=== PATIENT | female | born 1970 ===

== ENCOUNTER 2022-10-29 15:45 | Emergency (ER) | payer MEDICAID, SELFPAY ==
--- NOTE | ~2022-10-29 | XR_ITS ---
EXAMINATION: XR CHEST CLINICAL INFORMATION: Chest pain COMPARISON: None available. TECHNIQUE: 2 views of the chest were obtained. FINDINGS: No significant abnormality is noted involving the heart, lungs, mediastinum, bony thorax or soft tissues. XR/XR chest 2V IMPRESSION: Unremarkable chest examination.
--- NOTE | ~2022-10-29 | CT_ITS ---
EXAMINATION: CT ABDOMEN AND PELVIS WITH CONTRAST CLINICAL INFORMATION: Hematuria. No UTI or flank pain. COMPARISON: None available. TECHNIQUE: Multidetector volumetric images were obtained from the superior aspect of the liver through the pubic symphysis following administration 85 mL of Omnipaque 350 intravenous contrast. Sagittal and coronal reformatted images were obtained on the technologist's workstation. Oral contrast: No This CT examination was performed using dose optimization techniques as appropriate, variously including the following: *Automated exposure control *Adjustment of mA and/or kV according to patient size (this includes techniques or standardized protocols for targeted exams where dose is matched to indication/reason for exam; i.e. extremities or head) *Use of iterative reconstruction technique DLP: 504 mGy-cm FINDINGS: LUNG BASES: The visualized lung bases are clear. Coronary artery calcifications present. LIVER, GALLBLADDER, AND BILIARY TREE: The liver is normal in size, shape, and attenuation. No focal hepatic lesion or biliary ductal dilatation is present. The gallbladder is unremarkable with no evidence of radiopaque gallstones, gallbladder wall thickening, or obvious pericholecystic inflammatory changes. PANCREAS: Unremarkable. SPLEEN: Unremarkable. ADRENAL GLANDS: Unremarkable. KIDNEYS AND URETERS: The kidneys are normal in size, shape, and attenuation. No hydronephrosis or hydroureter. 0.2 cm right midpole renal calculus is 8.5 cm from the posterior axillary line. There is also a tiny right upper pole calculus. BLADDER: Unremarkable. GASTROINTESTINAL TRACT: The stomach is unremarkable. Normal caliber of the small bowel. There is no obstruction. There is small bowel fecalization, particularly in the left lower quadrant, suggesting slow transit. The appendix is not seen. No inflammation in the region of the cecum to suggest acute appendicitis. No colonic wall thickening or acute inflammation. Redundant appearance of the sigmoid colon. ABDOMINAL WALL: No significant hernia is appreciated. LYMPH NODES: Normal. VASCULAR: Normal caliber of the aorta with mild atherosclerotic vascular calcification. PELVIC VISCERA: Anteverted uterus with multiple nabothian cysts noted. A few small calcifications are seen which could be associated with fibroids. No adnexal mass. Dominant left adnexal follicle measures 2.3 cm. OSSEOUS STRUCTURES: No acute or suspicious osseous abnormality. Mild degenerative changes in the hips and spine. CT/CT abdomen pelvis w IV con IMPRESSION: No acute findings in the abdomen or pelvis. No hydronephrosis. Tiny nonobstructing right renal calculi. Fleischner guidelines were followed.
[2022-10-29 15:49] VITALS: BP 186/87; PULSE 91; RESP 16; TEMP 36.7; O2SAT 99; BMI 27.8
--- NOTE | 2022-10-29 15:49 | ED_ITS ---
HPI - Female Genitourinary General Chief complaint: Chest Pain Stated complaint: blood in urine Time Seen by Provider: 10/29/22 17:02 Source: patient Mode of arrival: ambulatory Limitations: no limitations History of Present Illness HPI Narrative: Patient comes emergency room complaining of chest pain for 13+ hours. Patient states it is mild, no shortness of breath, nonradiating. However, patient's main concern today is that she has been having blood in the urine. Patient denies being vaginal bleeding. Patient states that she only sees the blood when she urinates. Patient denies dysuria. No flank pain, no fever or chills. Related Data Allergies Allergy/AdvReac Type Severity Reaction Status Date / Time No Known Allergies Allergy Verified 10/29/22 15:48 Review of Systems Review of Systems: Constitutional : No Weight loss, No Fever, No Chills, No Night Sweats, No Fatigue, No Malaise ENT/Mouth : No Hearing loss, No Ear Pain, No Nasal Congestion, No Sinus Pain, No Hoarseness, No sore throat, No Rhinorrhea, No Swallowing Difficulty Eyes: No Eye Pain, No Swelling, No Redness, No Foreign Body, No Discharge, No Vision Changes Cardiovascular : Complaining of mild constant nonradiating midsternal Chest Pain for 13+ hours, No SOB, No Dyspnea on Exertion, No Orthopnea, No Edema, No Palpitations Respiratory : No Cough, No Sputum, No Wheezing, No Smoke Exposure, No Dyspnea Gastrointestinal : No Nausea, No Vomiting, No Diarrhea, No Constipation, No abdominal Pain, No Hematochezia, No Melena Genitourinary :no Dysuria, No Urinary Frequency, complaining of Hematuria, No Urinary Incontinence, No Urgency, No Flank Pain, No Urinary Flow Changes, No Hesitancy Musculoskeletal : No joint pain, No Myalgias, No Joint Swelling Skin : No Skin Lesions, No rash Neuro : No Weakness, No Numbness, No Paresthesias, No Loss of Consciousness, No Dizziness, No Headache Psych : No Anxiety/Panic, No Depression, No SI/HI/AH/VH, No Social Issues, Heme/Lymph: No Bruising, No Bleeding,No Lymphadenopathy Endocrine : No Polyuria, No Polydipsia, No Temperature Intolerance [facility] Past Medical History Medical History (Updated 10/30/22 @ 00:47 by Dolores Ferguson MD) Coronary artery disease Social History Social History Alcohol intake: never Smoked in Last 30 Days: No Use of substances other than those prescribed or required for medical reasons: No Advance Directives: No Advance Directives Information Provided: No Patient : No Physical Exam Vital Signs: Vital Signs: Last Vital Signs Temp 98.4 F 10/29/22 21:12 Pulse 93 10/29/22 21:12 Resp 17 10/29/22 21:12 BP 146/80 H 10/29/22 21:12 Pulse Ox 100 10/29/22 21:12 O2 Del Method Room Air 10/29/22 21:12 BMI result Body Mass Index 27.8 Const: Other: Appearance: Alert. Oriented X3. No acute distress. Eyes: Pupils equal, round and reactive to light. ENT: Pharynx normal. Neck: Normal inspection. Neck supple. No lymph nodes noted. No crepitus CVS: Normal heart rate and rhythm. Pulses normal. Normal S1 and S2, +2 systolic murmur right sternal border Respiratory: No respiratory distress. Breath sounds normal. No Wheezing. No rales Abdomen: Soft and nontender. No rigidity. No distention. : Patient has scant amount of brown blood, no active bleeding. Skin: Skin warm and dry. Normal skin color. Normal skin turgor. Extremities: No lower extremity edema. No Lacerations. No Rash Neuro: Oriented X 3. No motor deficit. No sensory deficit. Moving all extremities. No slurred speech. CN 2 through 12 grossly intact Psych: calm, cooperative, normal affect Course Course Course Narrative: This is an RME: Additional HPI, ROS, PE not included below will be deferred to primary provider. Patient is a 52-year-old male who presents emergency department for evaluation of constant mid chest pain described as a pressure, non radiating since this 04:00 this morning with associated dizziness and nausea. Also reporting hematuria with clots Plan: Labs, EKG, hCG, urinalysis Medications Administered Discontinued Medications Generic Name Dose Route Start Last Admin Trade Name Freq PRN Reason Stop Dose Admin Iohexol 100 ml 10/29/22 20:01 10/29/22 20:01 Iohexol 350 Mg/Ml 100 Ml Infus..Btl IV 10/29/22 20:02 85 ml ONCE ONE Administration Medical Decision Making Medical Decision Making [facility] Narrative: -patient came in complaining of chest pain, patient has history of CABG. Initially, admission was considered. -my interpretation of EKG: Normal sinus rhythm, heart rate 85, no ST segment depression or elevation, no T-wave inversion, QTC 449 -patient's white blood cell count is normal, BUN and creatinine relatively unremarkable -my interpretation of urinalysis, there is blood in the urine. Does not seem to have a UTI. Unclear why patient has blood in the urine. We will order a CT scan of the abdomen pelvis to rule out malignancy, cystitis. -CT scan does not show any abnormality -on physical exam, patient has vaginal bleeding, brown spotting. Patient states that this is the 1st time that she misses her period. I discussed with the patient that this is likely the beginning of menopause and was not having irregular menstruation. Differential Diagnosis Differential Diagnoses: The differential diagnosis associated with the presentation includes (Costochondritis, pleurisy, musculoskeletal pain, ACS. UTI, cystitis, vaginal bleeding) Admission/Observation Consideration of admission/observation: Escalation of care including admission/observation considered Lab Data MDM Lab Attestation statement: I reviewed the patient's lab results. 10/29/22 16:06 10/29/22 16:06 Labs: Lab Results 10/29/22 10/29/22 10/29/22 Range/Units 16:06 16:06 16:06 WBC 8.4 (4.8-10.8) X10*3/uL RBC 4.78 (4.20-5.50) X10*6/uL Hgb 12.4 (12.0-16.0) g/dl Hct 39.0 (37.0-47.0) % MCV 81.6 (80.0-98.0) fL MCH 25.9 L (27.0-33.0) pg MCHC 31.8 (31.0-35.0) g/dl RDW 12.3 (11.0-16.0) % Plt Count 271 (160-400) X10*3/uL MPV 11.7 (9.4-12.3) fL Immature Gran % (Auto) 0.4 (0.0-0.4) % Neut % (Auto) 57.3 (45-73) % Lymph % (Auto) 35.0 (20-40) % Barbour % (Auto) 5.8 (2-11) % Eos % (Auto) 1.1 (0-4) % Baso % (Auto) 0.4 (0-2) % Lymph # (Auto) 2.9 (1.2-4.9) X10*3/uL Barbour # (Auto) 0.5 (0.1-1.2) X10*3/uL Eos # (Auto) 0.1 (0.0-0.4) X10*3/uL Baso # (Auto) 0.0 (0.0-0.2) X10*3/uL Abs Immat Gran (auto) 0.03 (0.00-0.03) X10*3/uL Absolute Neuts (auto) 4.8 (2.0-8.3) x10*3/uL Absolute Nucleated RBC 0.000 (0.0-0.012) X10*3/uL Nucleated RBC % (auto) 0.0 (0.0-0.2) /100WBC Sodium 140 (135-145) mmol/L Potassium 3.8 (3.3-5.1) mmol/L Chloride 104 (96-108) mmol/L Carbon Dioxide 28 (22-29) mmol/L Anion Gap 12 (12-20) BUN 18 H (9-16) mg/dL Creatinine 0.83 (0.5-1.4) mg/dL Estim Creat Clear Calc 81.6 Estimated GFR > 60 Random Glucose 104 (60-115) mg/dL Calcium 9.2 (8.4-10.2) mg/dL Magnesium 2.1 (1.6-2.6) mg/dL Total Bilirubin 0.3 (0.0-1.0) mg/dL AST 30 (5-31) U/L ALT 27 (0-31) U/L Alkaline Phosphatase 115 (39-117) U/L Troponin I High Sens < 2.7 (<3.5-17.0) ng/L Total Protein 7.9 (6.5-8.0) g/dL Albumin 3.8 (3.5-5.0) g/dL Lipase 48 (8-78) U/L Urine Color Urine Appearance Urine pH (5.0-9.0) Ur Specific Mcdavid (1.005-1.025) Urine Protein (Neg-Trace) mg/dL Urine Glucose (UA) (Negative) mg/dL Urine Ketones (Negative) mg/dL Urine Blood (Negative) Urine Nitrite (Negative) Ur Leukocyte Esterase (Negative) Urine RBC (0-2) /HPF Urine WBC (0-5) /HPF Ur Squamous Epith Cells (0-2) /HPF Urine Bacteria (None Seen) Hyaline Casts (0-2) /LPF Urine Test (NEGATIVE) 10/29/22 10/29/22 Range/Units 17:28 17:28 WBC (4.8-10.8) X10*3/uL RBC (4.20-5.50) X10*6/uL Hgb (12.0-16.0) g/dl Hct (37.0-47.0) % MCV (80.0-98.0) fL MCH (27.0-33.0) pg MCHC (31.0-35.0) g/dl RDW (11.0-16.0) % Plt Count (160-400) X10*3/uL MPV (9.4-12.3) fL Immature Gran % (Auto) (0.0-0.4) % Neut % (Auto) (45-73) % Lymph % (Auto) (20-40) % Barbour % (Auto) (2-11) % Eos % (Auto) (0-4) % Baso % (Auto) (0-2) % Lymph # (Auto) (1.2-4.9) X10*3/uL Barbour # (Auto) (0.1-1.2) X10*3/uL Eos # (Auto) (0.0-0.4) X10*3/uL Baso # (Auto) (0.0-0.2) X10*3/uL Abs Immat Gran (auto) (0.00-0.03) X10*3/uL Absolute Neuts (auto) (2.0-8.3) x10*3/uL Absolute Nucleated RBC (0.0-0.012) X10*3/uL Nucleated RBC % (auto) (0.0-0.2) /100WBC Sodium (135-145) mmol/L Potassium (3.3-5.1) mmol/L Chloride (96-108) mmol/L Carbon Dioxide (22-29) mmol/L Anion Gap (12-20) BUN (9-16) mg/dL Creatinine (0.5-1.4) mg/dL Estim Creat Clear Calc Estimated GFR Random Glucose (60-115) mg/dL Calcium (8.4-10.2) mg/dL Magnesium (1.6-2.6) mg/dL Total Bilirubin (0.0-1.0) mg/dL AST (5-31) U/L ALT (0-31) U/L Alkaline Phosphatase (39-117) U/L Troponin I High Sens (<3.5-17.0) ng/L Total Protein (6.5-8.0) g/dL Albumin (3.5-5.0) g/dL Lipase (8-78) U/L Urine Color Yellow Urine Appearance Clear Urine pH 6.0 (5.0-9.0) Ur Specific Mcdavid >= 1.030 H (1.005-1.025) Urine Protein 100 (2+) H (Neg-Trace) mg/dL Urine Glucose (UA) >=1000 H (Negative) mg/dL Urine Ketones Negative (Negative) mg/dL Urine Blood Small (1+) H (Negative) Urine Nitrite Negative (Negative) Ur Leukocyte Esterase Negative (Negative) Urine RBC 3-5 H (0-2) /HPF Urine WBC 0-5 (0-5) /HPF Ur Squamous Epith Cells 3-5 (0-2) /HPF Urine Bacteria 4+ (None Seen) Hyaline Casts 0-2 (0-2) /LPF Urine Test NEGATIVE (NEGATIVE) Independent Interpretation I performed an independent interpretation of an: CT Scan (My interpretation of CT scan: No obvious abnormalities of the brother or system) Radiology Impression Discussion of test interpretation with radiology: I have reviewed the radiologist's reading. Radiologist Impression: FINDINGS: LUNG BASES: The visualized lung bases are clear. Coronary artery calcifications present.? LIVER, GALLBLADDER, AND BILIARY TREE: The liver is normal in size, shape, and attenuation. No focal hepatic lesion or biliary ductal dilatation is present. The gallbladder is unremarkable with no evidence of radiopaque gallstones, gallbladder wall thickening, or obvious pericholecystic inflammatory changes.? PANCREAS: Unremarkable.? SPLEEN: Unremarkable.? ADRENAL GLANDS: Unremarkable.? KIDNEYS AND URETERS: The kidneys are normal in size, shape, and attenuation. No hydronephrosis or hydroureter. 0.2 cm right midpole renal calculus is 8.5 cm from the posterior axillary line. There is also a tiny right upper pole calculus. BLADDER: Unremarkable.? GASTROINTESTINAL TRACT: The stomach is unremarkable. Normal caliber of the small bowel. There is no obstruction. There is small bowel fecalization, particularly in the left lower quadrant, suggesting slow transit. The appendix is not seen. No inflammation in the region of the cecum to suggest acute appendicitis. No colonic wall thickening or acute inflammation. Redundant appearance of the sigmoid colon.? ABDOMINAL WALL: No significant hernia is appreciated.? LYMPH NODES: Normal. VASCULAR: Normal caliber of the aorta with mild atherosclerotic vascular calcification. PELVIC VISCERA: Anteverted uterus with multiple nabothian cysts noted. A few small calcifications are seen which could be associated with fibroids. No adnexal mass. Dominant left adnexal follicle measures 2.3 cm.? OSSEOUS STRUCTURES: No acute or suspicious osseous abnormality. Mild degenerative changes in the hips and spine.? CT/CT abdomen pelvis w IV con IMPRESSION: No acute findings in the abdomen or pelvis. No hydronephrosis. Tiny nonobstructing right renal calculi. ? Fleischner guidelines were followed. Critical Care Time Critical Care Time Critical Care Time: Yes Total Critical Care Time: 45 Attestation: I have personally provided critical care time. Time includes review of lab data, radiology results, discussion with consultants, and monitoring for potential decompensation. Intervention performed as documented. Discharge Plan Discharge Clinical Impression: Menopause Patient Disposition: Home, Self-Care Instructions: Dysfunctional Uterine Bleeding (ED) Additional Instructions: Please follow-up with your primary care physician tomorrow. If you have any worsening or new symptoms, please return to the emergency room or call 911 Referrals: Timothy Gonzalez MD [Physician] - 11/01/22 ([facility])
--- NOTE | 2022-10-29 15:54 | ECG_ITS ---
Test Reason : CHEST PAIN Blood Pressure : / mmHG Vent. Rate : 085 BPM Atrial Rate : 085 BPM P-R Int : 152 ms QRS Dur : 076 ms QT Int : 378 ms P-R-T Axes : 048 012 034 degrees QTc Int : 449 ms Normal sinus rhythm Normal ECG No previous ECGs available Referred By: Yanira Blackwood Electronically Signed By:RASHEEDA SMITH MD
[2022-10-29 16:11] LABS: MANUAL DIFF FLAG NO
[2022-10-29 16:12] LABS: Basophils Percent Auto 0.4 % (0-2); Eosinophils Absolute Auto 0.1 X10*3/uL (0.0-0.4); Eosinophils Percent Auto 1.1 % (0-4); Hemoglobin 12.4 g/dl (12.0-16.0); Imm Gran Abs Auto 0.03 X10*3/uL (0.00-0.03); Imm Gran Pct Auto 0.4 % (0.0-0.4); Lymphocytes Absolute Auto 2.9 X10*3/uL (1.2-4.9); Mean Corpuscular HGB Conc 31.8 g/dl (31.0-35.0); Mean Corpuscular Hemoglobin 25.9 pg (27.0-33.0); Mean Corpuscular Volume 81.6 fL (80.0-98.0); Mean Platelet Volume 11.7 fL (9.4-12.3); Monocytes Absolute Auto 0.5 X10*3/uL (0.1-1.2); Monocytes Percent Auto 5.8 % (2-11); Neutrophils Absolute Auto 4.8 x10*3/uL (2.0-8.3); Neutrophils Percent Auto 57.3 % (45-73); Platelet Count 271 X10*3/uL (160-400); Red Blood Count 4.78 X10*6/uL (4.20-5.50); Red Cell Distribution Width 12.3 % (11.0-16.0); White Blood Count 8.4 X10*3/uL (4.8-10.8)
[2022-10-29 16:27] LABS: Alanine Aminotransferase 27 U/L (0-31); Albumin Level 3.8 g/dL (3.5-5.0); Alkaline Phosphatase 115 U/L (39-117); Anion Gap 12 (12-20); Aspartate Amino Transferase 30 U/L (5-31); Bilirubin Total 0.3 mg/dL (0.0-1.0); Blood Urea Nitrogen 18 mg/dL (9-16); Calcium 9.2 mg/dL (8.4-10.2); Carbon Dioxide 28 mmol/L (22-29); Chloride 104 mmol/L (96-108); Creatinine Clr Calc Pharmacy 81.6; Estimated Glomerular Filt Rate > 60; Glucose Random 104 mg/dL (60-115); Lipase 48 U/L (8-78); Magnesium 2.1 mg/dL (1.6-2.6); Potassium 3.8 mmol/L (3.3-5.1); Sodium 140 mmol/L (135-145); Total Protein 7.9 g/dL (6.5-8.0)
[2022-10-29 16:38] LABS: Troponin-I High Sensitivity < 2.7 ng/L (<3.5-17.0)
[2022-10-29 17:36] LABS: Appearance Urine Clear; Color Urine Yellow; Glucose Urine UA >=1000 mg/dL (Negative); Leukocyte Esterase Urine Negative (Negative); Nitrite Urine Negative (Negative); Specific Gravity - Urine >= 1.030 (1.005-1.025); UMIC TRIGGER UACC YES; Urine Blood Small (1+) (Negative); Urine Ketones Negative (Negative); Urine Protein 100 (2+) mg/dL (Neg-Trace)
[2022-10-29 17:39] LABS: UPreg QC Valid YES; Urine Pregnancy NEGATIVE (NEGATIVE)
[2022-10-29 17:49] LABS: Bacteria Urine 4+ (None Seen); Hyaline Casts Urine 0-2 /LPF (0-2); WBC Urine 0-5 /HPF (0-5)
[2022-10-29 17:51] LABS: UACC Culture Trigger YES
--- NOTE | 2022-10-29 19:17 | PC.NURSE ---
Assumed care of pt. Pt lying on stretcher, watching television, no apparent distress at this time. Pt denies CP at this time, given concerns overlabs, planning for CT, pt aware of POC. IV established, pending CT scan and dispo.
[2022-10-29] MEDS: iohexoL 350 MG/ML 100 ML INFUS..BTL IV (20:01)
[2022-10-29 21:12] VITALS: BP 146/80; PULSE 93; RESP 17; TEMP 36.9; O2SAT 100
--- NOTE | 2022-10-29 21:37 | PC.NURSE ---
pt remains lyingon stretcher, no acute distress at this time. Pending CT read and dispo.
== END 2022-10-30 01:17 | disposition home or self-care (01) ==
PROVIDERS: Nurse Practitioner Family; Emergency Provider Emergency Medicine
DX: N92.4 Excessive bleeding in the premenopausal period (principal); R07.9 Chest pain, unspecified
CPT/HCPCS: 36415; 71046; 74177; 80053; 81001; 81025; 83690; 83735; 84484; 85025; 87086; 87088; 87186; 93005; 99284; 99285; Q9967

== ENCOUNTER → 2022-10-29 15:54 | Outpatient (BNV) | payer MEDICAID, SELFPAY | PROVIDERS: Emergency Provider Emergency Medicine; Visit Provider Internal Medicine Cardiovascular Disease | DX: R07.9 Chest pain, unspecified (principal) | CPT/HCPCS: 93010 ==

== ENCOUNTER 2023-07-18 08:39 | Inpatient (IN) | payer MEDICAID, SELFPAY ==
--- NOTE | ~2023-07-18 | CT_ITS ---
EXAMINATION: CT ABDOMEN AND PELVIS WITH CONTRAST CLINICAL INFORMATION: Epigastric and left lower quadrant pain with tenderness to palpation COMPARISON: CT abdomen pelvis 10/29/2022 TECHNIQUE: Multidetector volumetric images were obtained from the superior aspect of the liver through the pubic symphysis following administration 85 mL of Omnipaque 350 intravenous contrast. Sagittal and coronal reformatted images were obtained on the technologist's workstation. Oral contrast: No This CT examination was performed using dose optimization techniques as appropriate, variously including the following: *Automated exposure control *Adjustment of mA and/or kV according to patient size (this includes techniques or standardized protocols for targeted exams where dose is matched to indication/reason for exam; i.e. extremities or head) *Use of iterative reconstruction technique DLP: 550 mGy-cm FINDINGS: LUNG BASES: The visualized lung bases are unremarkable. LIVER, GALLBLADDER, AND BILIARY TREE: The liver is mildly enlarged at 17.5 cm in cephalocaudad dimension with mildly decreased attenuation suggesting hepatic steatosis. No liver masses or bile duct dilatation seen. The gallbladder is unremarkable with no evidence of radiopaque gallstones, gallbladder wall thickening, or obvious pericholecystic inflammatory changes. PANCREAS: Unremarkable. SPLEEN: Unremarkable. ADRENAL GLANDS: Unremarkable. KIDNEYS AND URETERS: The kidneys are normal in size, shape, and attenuation. A few punctate calcifications in the right kidney are most likely vascular. No hydronephrosis, hydroureter, or definite renal calculi seen. No perinephric stranding. BLADDER: There is marked symmetric thickening of the bladder wall which is completely new when compared to the prior study. GASTROINTESTINAL TRACT: There is some mild thickening of a single loop of small bowel in the pelvis which appears minimally tethered but without surrounding inflammatory change. There is an area of narrowing in sigmoid colon without obstruction which could be due to underdistention. The small and large bowel are otherwise unremarkable. The appendix is not seen but there is no evidence of appendicitis appendicitis. ABDOMINAL WALL: No significant hernia is appreciated. LYMPH NODES: No retroperitoneal lymphadenopathy. Some mildly prominent lymph nodes are seen in the cecal mesentery the largest measuring 0.9 cm in short axis dimension (7:46). VASCULAR: Calcific atherosclerotic changes are present in the aorta and iliofemoral vessels. There is no evidence of an abdominal aortic aneurysm. PELVIC VISCERA: Unremarkable. OSSEOUS STRUCTURES: There is a hemangioma in the T2 vertebral body CT/CT abdomen pelvis w IV con IMPRESSION: 1. There is marked symmetric thickening of the bladder wall which is completely new when compared to the prior study. Correlate with urinalysis with the possibility of cystitis. 2. There is some mild thickening of a single loop of small bowel in the pelvis which appears minimally tethered. This could be due to enteritis in the correct clinical setting. 3. There is an area of narrowing in the sigmoid colon without obstruction which could be due to underdistention. If there are guaiac positive stools, colonoscopy or CT colonoscopy may be of value. 4. Mildly prominent lymph nodes in the cecal mesentery. 5. Mildly enlarged fatty liver. 6. Other incidental findings as described above. Fleischner guidelines were followed.
[2023-07-18 09:13] VITALS: BP 112/61; PULSE 95; RESP 18; TEMP 36.3; O2SAT 98; BMI 28.2
[2023-07-18] MEDS: Ondansetron ODT 4 MG TAB.RAPDIS TRANSLINGU (11:12)
[2023-07-18 15:15] VITALS: BP 115/60; PULSE 95; RESP 16; TEMP 36.8; O2SAT 99
--- OUTSIDE RECORDS SUMMARY | 2023-07-18 15:22 | XMS_ITS | Continuity of Care Document ---
Author Organization [facility] Address [address] [place] [id number]- Care Team Providers Care Wallpaperer Name Role Phone Not on Staff, PCP Primary Care Physician Unavail able Encounter [facility] Date(s): 01/31/23 - 03/02/23 [facility] [address] [place] [id number]- Patient Care team information Care Team Personnel Name: Not on Staff, PCP Position: [facility] Physician (General Medicine) Member Role: PCP
--- OUTSIDE RECORDS SUMMARY | 2023-07-18 15:22 | XMS_ITS | Continuity of Care Document ---
Author Organization [facility] ter Address [address] [place] [id number]- Care Team Providers Care [employer] Name Role Phone Not on Staff, PCP Primary Care Physician Unavail able Encounter [facility] Date(s): 01/24/23 - 04/08/[address] [id number]- Attending Physician: Ani Lezama Admitting Physician: Ani Lezama Referring Physician: Ani Lezama Patient Care team information Care Team Personnel Name: Not on Staff, PCP Position: [facility] Physician (General Medicine) Member Role: PCP
[2023-07-18 18:14] LABS: Influenza A PCR NEGATIVE (Negative); Influenza B PCR NEGATIVE (Negative); Resp Syncy Virus RNA Qual PCR NEGATIVE (Negative); SARS COV2 PCR INHOUSE NEGATIVE (Negative)
[2023-07-18 18:31] LABS: Appearance Urine Hazy; Color Urine Yellow; Glucose Urine UA 500 mg/dL (Negative); Leukocyte Esterase Urine Trace (Negative); Nitrite Urine Negative (Negative); PH 5.5 (5.0-9.0); Specific Gravity - Urine >= 1.030 (1.005-1.025); UMIC TRIGGER UACC YES; Urine Blood Trace (Negative); Urine Ketones Negative (Negative); Urine Protein 300 (3+) mg/dL (Neg-Trace)
[2023-07-18 18:50] LABS: Bacteria Urine 4+ (None Seen); Hyaline Casts Urine >20 /LPF (0-2); RBC Urine 0-2 /HPF (0-2); Squamous Epithelial Cell Urine >20 /HPF (0-2); UACC Culture Trigger YES
--- NOTE | 2023-07-18 19:15 | ED_ITS ---
HPI - General Adult General Chief complaint: Nausea/Vomiting/Diarrhea Stated complaint: Diarrhea Weak Time Seen by Provider: 07/18/23 18:41 Source: patient Mode of arrival: ambulatory Limitations: no limitations History of Present Illness HPI narrative: Patient is a 53-year-old female who presents emergency department for evaluation of multiple episodes of nausea and diarrhea with onset yesterday afternoon a few hours after eating a perez egg and cheese sandwich while at work. She first developed epigastric pain followed by the nausea and diarrhea. She reports that/night she has felt continuously nauseous, has had 10-15 episodes of watery diarrhea that is described as being brown in color with intermittent headache. She additionally reports at the time my initial evaluation that her continuous glucometer has been reading ?high? all day, and denies having any insulin pump. She denies any known sick contacts. She denies any fevers, chills, vomiting, chest pain, shortness of breath, urogenital symptoms, known sick contacts. Related Data Home Medications ?Medication ?Instructions ?Recorded ?Confirmed insulin aspart U-100 100 unit/mL 20 unit subcut TIDAC 07/18/23 07/18/23 (3 mL) subcutaneous pen insulin degludec 200 unit/mL (3 48 unit subcut BEDTIME 07/18/23 07/18/23 mL) subcutaneous pen (Tresiba FlexTouch U-200 insulin) lisinopril 40 mg tablet 40 mg PO DAILY 07/18/23 07/18/23 Allergies Allergy/AdvReac Type Severity Reaction Status Date / Time No Known Allergies Allergy Verified 07/18/23 09:15 Review of Systems 2 Review of Systems: Yes all other systems are reviewed and are negative PMFSH Past Medical History Attestation statement: The following information was validated with the patient. Source: old records reviewed Medical History HTN (hypertension) HLD (hyperlipidemia) Coronary artery disease Social History Social History Alcohol intake: never Use of substances other than those prescribed or required for medical reasons: No Advance Directives: No Advance Directives Information Provided: No Patient : No Physical Exam ED Vital Signs: Vital Signs - 24 hr 07/18/23 09:13 07/18/23 15:15 07/18/23 19:17 Temperature 97.4 F 98.3 F 98.2 F Pulse Rate 95 95 90 Respiratory Rate 18 16 18 Blood Pressure 112/61 115/60 126/64 Pulse Oximetry 98 99 99 Oxygen Delivery Method Room Air Room Air Room Air BMI result Body Mass Index 28.2 Appearance: Alert.?Oriented to person, place and time. No acute distress.?Normal affect. Eyes: Pupils equal, round and reactive to light.? ENT: Pharynx normal.?? Neck: Normal inspection.? Neck supple.?? CVS: Heart sounds normal. Normal heart rate and rhythm.? Pulses normal.?? Respiratory: No respiratory distress.? Lung sounds clear to auscultation bilaterally?? Abdomen: Soft diffuse lower abdominal tenderness upon palpation. Normoactive bowel sounds. No pulsatile mass.??CVA tenderness Skin: Skin warm and dry.? Normal skin color.? Extremities: No lower extremity edema.? Neuro: Moves all extremities spontaneously. Sensation intact bilaterally. Ambulates with normal steady gait. Course Reevaluation(s) Reevaluation #1: Viral panel is negative. Urinalysis with glucosuria, negative for ketones, 4+ urine bacteria seen, however there is additionally significant amount of squamous epithelial cells with urine WBCs denies urinary symptoms at this time, concern for UTI versus urogenital contamination. CBC is without leukocytosis or anemia. Pseudo hyponatremia of 134, secondary to non-anion gap hyperglycemia, no DKA, KIMBERLY with BUN 30 creatinine 1.41. Lipase LFTs within normal range. Time: 20:07 Reevaluation #2: Intractable diarrhea and abdominal pain, KIMBERLY, admitted to medicine service, accepting hospitalist Dr. Bronson, patient agreeable to plan of care. Medications Administered Generic Name Dose Route Start Last Admin Trade Name Freq PRN Reason Stop Dose Admin Enoxaparin Sodium 40 mg 07/18/23 20:30 07/18/23 21:55 Enoxaparin Sodium 40 Mg/0.4 Ml Syringe SUBCUT 40 mg Q24H OZZIE Administration Insulin Glargine 33 unit 07/18/23 21:30 07/18/23 21:55 Insulin Glargine,Hum.Rec.Anlog 100 Unit/Ml 10 Ml Vial SUBCUT 33 unit BEDTIME OZZIE Administration Insulin Human Lispro 0 unit 07/18/23 21:00 07/18/23 20:43 Insulin Lispro 100 Unit/Ml 3 Ml Vial SUBCUT 4 unit QIDACHS OZZIE Administration Protocol Sodium Chloride 3 ml 07/19/23 00:00 07/19/23 00:36 0.9 % Sodium Chloride Flush 3 Ml Syringe IVFLUSH Not Given QSHIFT OZZIE Discontinued Medications Generic Name Dose Route Start Last Admin Trade Name Amber PRN Reason Stop Dose Admin Sodium Chloride 1,000 mls @ 999 mls/hr 07/18/23 19:30 07/18/23 19:55 Ns IV 07/18/23 20:30 999 mls/hr .Q1H1M OZZIE Administration Iohexol 85 ml 07/18/23 20:11 07/18/23 20:11 Iohexol 350 Mg/Ml 100 Ml Infus..Btl IV 07/18/23 20:12 85 ml ONCE ONE Administration Ketorolac Tromethamine 30 mg 07/18/23 19:28 07/18/23 19:55 Ketorolac Tromethamine 30 Mg/Ml Vial IVPUSH 07/18/23 19:29 Not Given ONCE ONE Loperamide HCl 4 mg 07/18/23 21:21 07/18/23 21:56 Loperamide Hcl 2 Mg Capsule PO 07/18/23 21:22 Not Given ONCE ONE Loperamide HCl 2 mg 07/18/23 21:21 07/18/23 21:55 Loperamide Hcl 2 Mg Capsule PO 07/18/23 21:22 2 mg ONCE ONE Administration Ondansetron HCl 4 mg 07/18/23 11:10 07/18/23 11:12 Ondansetron Odt 4 Mg Tab.Rapdis TRANSLINGU 07/18/23 11:11 4 mg ONCE ONE Administration Ondansetron HCl 4 mg 07/18/23 19:28 07/18/23 19:55 Ondansetron Hcl 4 Mg/2 Ml Vial IVPUSH 07/18/23 19:29 Not Given ONCE ONE Medical Decision Making Medical Decision Making MDM Narrative: Patient is a 53-year-old female who presents emergency department for evaluation of nausea and diarrhea with abdominal pain as per HPI and physical exam portion of this note. Overall she appears fatigued, vitals are stable, she is speaking clear full sentences. Will obtain CBC to evaluate for leukocytosis/ anemia, CMP and lipase to evaluate for abnormal electrolytes /abnormal renal function/ abnormal hepatic/biliary function, VBG, beta hydroxy, CT of the abdomen and pelvis and Urinalysis. Differential Diagnosis Differential Diagnoses: The differential diagnosis associated with the presentation includes (Gastroenteritis, viral syndrome, cholecystitis, cholelithiasis, electrolyte derangement, KIMBERLY, diverticulitis, non-anion gap hyperglycemia, DKA) Admission/Observation Consideration of admission/observation: Escalation of care including admission/observation considered (See course narrative) Consult Healthcare Provider Management of the patient was discussed with: Hospitalist (See course narrative) Lab Data MDM Lab Attestation statement: I reviewed the patient's lab results. (See course narrative) 07/18/23 19:27 07/18/23 19:27 Labs: Lab Results 07/18/23 07/18/23 07/18/23 Range/Units 17:19 18:23 19:14 WBC (4.8-10.8) X10*3/uL RBC (4.20-5.50) X10*6/uL Hgb (12.0-16.0) g/dl Hct (37.0-47.0) % MCV (80.0-98.0) fL MCH (27.0-33.0) pg MCHC (31.0-35.0) g/dl RDW (11.0-16.0) % Plt Count (160-400) X10*3/uL MPV (9.4-12.3) fL Immature Gran % (Auto) (0.0-0.4) % Neut % (Auto) (45-73) % Lymph % (Auto) (20-40) % [place] % (Auto) (2-11) % Eos % (Auto) (0-4) % Baso % (Auto) (0-2) % Lymph # (Auto) (1.2-4.9) X10*3/uL [place] # (Auto) (0.1-1.2) X10*3/uL Eos # (Auto) (0.0-0.4) X10*3/uL Baso # (Auto) (0.0-0.2) X10*3/uL Abs Immat Gran (auto) (0.00-0.03) X10*3/uL Absolute Neuts (auto) (2.0-8.3) x10*3/uL Absolute Nucleated RBC (0.0-0.012) X10*3/uL Nucleated RBC % (auto) (0.0-0.2) /100WBC VBG pH (7.32-7.43) VBG pCO2 mmHg VBG pO2 mmHg VBG HCO3 (22-26) mmol/L VBG O2 Saturation % VBG Base Excess mmol/L Sodium (135-145) mmol/L Potassium (3.3-5.1) mmol/L Chloride (96-108) mmol/L Carbon Dioxide (22-29) mmol/L Anion Gap (12-20) BUN (9-16) mg/dL Creatinine (0.5-1.4) mg/dL Estim Creat Clear Calc Estimated GFR POC Glucose 275 H (60-115) mg/dL Random Glucose (60-115) mg/dL Calcium (8.4-10.2) mg/dL Magnesium (1.6-2.6) mg/dL Total Bilirubin (0.0-1.0) mg/dL AST (5-31) U/L ALT (0-31) U/L Alkaline Phosphatase (39-117) U/L Total Protein (6.5-8.0) g/dL Albumin (3.5-5.0) g/dL Lipase (8-78) U/L Beta-Hydroxybutyrate (0.02-0.27) mmol/L Urine Color Yellow Urine Appearance Hazy Urine pH 5.5 (5.0-9.0) Ur Specific [place] >= 1.030 H (1.005-1.025) Urine Protein 300 (3+) H (Neg-Trace) mg/dL Urine Glucose (UA) 500 H (Negative) mg/dL Urine Ketones Negative (Negative) mg/dL Urine Blood Trace (Negative) Urine Nitrite Negative (Negative) Ur Leukocyte Esterase Trace H (Negative) Urine RBC 0-2 (0-2) /HPF Urine WBC 6-10 (0-5) /HPF Ur Squamous Epith Cells >20 (0-2) /HPF Urine Bacteria 4+ (None Seen) Hyaline Casts >20 (0-2) /LPF Influenza Type A (PCR) NEGATIVE (Negative) Influenza Type B (PCR) NEGATIVE (Negative) RSV RNA Qual (PCR) NEGATIVE (Negative) SARS-CoV-2 RNA (RT-PCR) NEGATIVE (Negative) 07/18/23 07/18/23 Range/Units 19:27 19:52 WBC 6.3 (4.8-10.8) X10*3/uL RBC 4.77 (4.20-5.50) X10*6/uL Hgb 12.3 (12.0-16.0) g/dl Hct 38.1 (37.0-47.0) % MCV 79.9 L (80.0-98.0) fL MCH 25.8 L (27.0-33.0) pg MCHC 32.3 (31.0-35.0) g/dl RDW 12.5 (11.0-16.0) % Plt Count 241 (160-400) X10*3/uL MPV 11.6 (9.4-12.3) fL Immature Gran % (Auto) 0.2 (0.0-0.4) % Neut % (Auto) 63.4 (45-73) % Lymph % (Auto) 27.9 (20-40) % [place] % (Auto) 6.2 (2-11) % Eos % (Auto) 2.1 (0-4) % Baso % (Auto) 0.2 (0-2) % Lymph # (Auto) 1.8 (1.2-4.9) X10*3/uL [place] # (Auto) 0.4 (0.1-1.2) X10*3/uL Eos # (Auto) 0.1 (0.0-0.4) X10*3/uL Baso # (Auto) 0.0 (0.0-0.2) X10*3/uL Abs Immat Gran (auto) 0.01 (0.00-0.03) X10*3/uL Absolute Neuts (auto) 4.0 (2.0-8.3) x10*3/uL Absolute Nucleated RBC 0.000 (0.0-0.012) X10*3/uL Nucleated RBC % (auto) 0.0 (0.0-0.2) /100WBC VBG pH 7.32 (7.32-7.43) VBG pCO2 45 mmHg VBG pO2 54 mmHg VBG HCO3 24 (22-26) mmol/L VBG O2 Saturation 81.0 % VBG Base Excess -2.1 mmol/L Sodium 134 L (135-145) mmol/L Potassium 3.9 (3.3-5.1) mmol/L Chloride 103 (96-108) mmol/L Carbon Dioxide 24 (22-29) mmol/L Anion Gap 11 L (12-20) BUN 30 H (9-16) mg/dL Creatinine 1.41 H (0.5-1.4) mg/dL Estim Creat Clear Calc 47.9 Estimated GFR 39 POC Glucose (60-115) mg/dL Random Glucose 351 H* (60-115) mg/dL Calcium 8.9 (8.4-10.2) mg/dL Magnesium 1.7 (1.6-2.6) mg/dL Total Bilirubin 0.5 (0.0-1.0) mg/dL AST 16 (5-31) U/L ALT 21 (0-31) U/L Alkaline Phosphatase 114 (39-117) U/L Total Protein 7.2 (6.5-8.0) g/dL Albumin 3.4 L (3.5-5.0) g/dL Lipase 31 (8-78) U/L Beta-Hydroxybutyrate 0.06 (0.02-0.27) mmol/L Urine Color Urine Appearance Urine pH (5.0-9.0) Ur Specific [place] (1.005-1.025) Urine Protein (Neg-Trace) mg/dL Urine Glucose (UA) (Negative) mg/dL Urine Ketones (Negative) mg/dL Urine Blood (Negative) Urine Nitrite (Negative) Ur Leukocyte Esterase (Negative) Urine RBC (0-2) /HPF Urine WBC (0-5) /HPF Ur Squamous Epith Cells (0-2) /HPF Urine Bacteria (None Seen) Hyaline Casts (0-2) /LPF Influenza Type A (PCR) (Negative) Influenza Type B (PCR) (Negative) RSV RNA Qual (PCR) (Negative) SARS-CoV-2 RNA (RT-PCR) (Negative) Radiology Impression Discussion of test interpretation with radiology: I have reviewed the radiologist's reading. Radiologist Impression: CT/CT abdomen pelvis w IV con IMPRESSION: 1. There is marked symmetric thickening of the bladder wall which is completely new when compared to the prior study. Correlate with urinalysis with the possibility of cystitis. 2. There is some mild thickening of a single loop of small bowel in the pelvis which appears minimally tethered. This could be due to enteritis in the correct clinical setting. 3. There is an area of narrowing in the sigmoid colon without obstruction which could be due to underdistention. If there are guaiac positive stools, colonoscopy or CT colonoscopy may be of value. 4. Mildly prominent lymph nodes in the cecal mesentery. 5. Mildly enlarged fatty liver. 6. Other incidental findings as described above. Critical Care Time Critical Care Time Critical Care Time: Yes Total Critical Care Time: 40 Attestation: I personally attest to this critical care time spent taking care of the patient exclusive of all other billable procedures was approximately 40 minutes including initial evaluation of patient, ordering tests, CT interpretation, medical consultation, documentation, re-evaluation. Discharge Plan Discharge Patient Disposition: Admitted As Inpatient Interventions: Admission Worksheet (ED) Last Done: 07/19/23 00:23
[2023-07-18 19:17] VITALS: BP 126/64; PULSE 90; RESP 18; TEMP 36.8; O2SAT 99
[2023-07-18 19:18] LABS: Glucose, Whole Blood 275 mg/dL (60-115)
--- NOTE | 2023-07-18 19:18 | MHC.EDTECH ---
This tech took over care of patient at 1900.hourly rounds and vitals complete.call sadler in reach
[2023-07-18 19:33] LABS: MANUAL DIFF FLAG NO
[2023-07-18 19:36] LABS: Basophils Percent Auto 0.2 % (0-2); Eosinophils Absolute Auto 0.1 X10*3/uL (0.0-0.4); Eosinophils Percent Auto 2.1 % (0-4); Hematocrit 38.1 % (37.0-47.0); Hemoglobin 12.3 g/dl (12.0-16.0); Imm Gran Abs Auto 0.01 X10*3/uL (0.00-0.03); Imm Gran Pct Auto 0.2 % (0.0-0.4); Lymphocytes Absolute Auto 1.8 X10*3/uL (1.2-4.9); Lymphocytes Percent Auto 27.9 % (20-40); Mean Corpuscular HGB Conc 32.3 g/dl (31.0-35.0); Mean Corpuscular Hemoglobin 25.8 pg (27.0-33.0); Mean Corpuscular Volume 79.9 fL (80.0-98.0); Mean Platelet Volume 11.6 fL (9.4-12.3); Monocytes Absolute Auto 0.4 X10*3/uL (0.1-1.2); Monocytes Percent Auto 6.2 % (2-11); Neutrophils Percent Auto 63.4 % (45-73); Platelet Count 241 X10*3/uL (160-400); Red Blood Count 4.77 X10*6/uL (4.20-5.50); Red Cell Distribution Width 12.5 % (11.0-16.0); White Blood Count 6.3 X10*3/uL (4.8-10.8)
[2023-07-18 19:47] LABS: Beta-Hydroxybutyrate 0.06 mmol/L (0.02-0.27); Magnesium 1.7 mg/dL (1.6-2.6)
[2023-07-18] MEDS: 0.9 % Sodium Chloride 1,000 ML 999 ML IV (19:55)
[2023-07-18 19:56] LABS: Venous Blood Gas Refer to POC result
[2023-07-18 19:58] LABS: Glucose Random 351 mg/dL (60-115)
[2023-07-18 19:58] LABS: VBG Base Excess -2.1 mmol/L; VBG HCO3 24 mmol/L (22-26); VBG pCO2 45 mmHg; VBG pH 7.32 (7.32-7.43); VBG pO2 54 mmHg
[2023-07-18 19:59] LABS: Alanine Aminotransferase 21 U/L (0-31); Albumin Level 3.4 g/dL (3.5-5.0); Alkaline Phosphatase 114 U/L (39-117); Anion Gap 11 (12-20); Aspartate Amino Transferase 16 U/L (5-31); Bilirubin Total 0.5 mg/dL (0.0-1.0); Blood Urea Nitrogen 30 mg/dL (9-16); Calcium 8.9 mg/dL (8.4-10.2); Carbon Dioxide 24 mmol/L (22-29); Chloride 103 mmol/L (96-108); Creatinine Clr Calc Pharmacy 47.9; Estimated Glomerular Filt Rate 39; Lipase 31 U/L (8-78); Potassium 3.9 mmol/L (3.3-5.1); Sodium 134 mmol/L (135-145); Total Protein 7.2 g/dL (6.5-8.0)
[2023-07-18] MEDS: iohexoL 350 MG/ML 100 ML INFUS..BTL 85 ML IV (20:11)
--- NOTE | 2023-07-18 20:13 | PC.NURSE ---
Assumed care of pt at 19:15. IV 20g placed in LAC, flushing well. Labs sent. VSS. Significant other at bedside. Plan of care ongoing.
--- NOTE | 2023-07-18 20:34 | P.HPHOSP_ITS ---
History of Present Illness Date of Service: 07/18/23 Attending physician on admission: Champ Bronson Chief Complaint: Nausea, vomiting, diarrhea Pt is a 53-year-old Yakut-speaking female with a PMH significant for?HTN, HLD, and insulin-dependent type 2 diabetes who presents to the ED with?intractable diarrhea since last night. Patient reports she has been experiencing central abdominal cramping pain since noon. Later in the evening patient began experiencing nonbloody diarrhea. Has had between 15 and 20 episodes since last night. Has also had nausea without vomiting, subjective chills, and neck and joint pain. Denies any sick contacts or recent travel, but notes she ate a potentially suspicious egg salad, tuna, and perez sandwich yesterday for lunch. Patient reports she has been able to tolerate some p.o. liquid since symptoms began. Denies chest pain/pressure, palpitaitons. No SOB or difficulty breathing. Patient denies polyuria or dysuria. In the ED pt with HR up to 95, vitals otherwise WNL. Labs were significant for sodium 134, BUN 30 , creatinine 1.41(up from 0.83 on 10/29/2022), and random glucose 351. UTI positive for protein, glucose, trace amount of leukocyte esterase, wbc's 6-10, squamous epithelial cells >20, and 4+ bacteria, concerning for contamination rather than acute UTI. Tested negative for RSV, COVID, and flu. CT?of abd and pelvis pending. Pt was treated with ondansetron and IVF. Pt will be admitted to the hospital for treatment and further evaluation of KIMBERLY in the setting of intractable diarrhea likely secondary to gastroenteritis. Review of Systems 2 Review of Systems: Non bloody diarrhea Nausea, no vomiting Central abdominal cramping pain Neck and joint pain Chills Denies chest pain/pressure, palpitations No shortness of breath [facility] Medical History (Updated 07/18/23 @ 21:38 by LUCAS Tracy) HTN (hypertension) HLD (hyperlipidemia) Coronary artery disease Social History Alcohol intake: never Use of substances other than those prescribed or required for medical reasons: No Advance Directives: No Advance Directives Information Provided: No Patient : No Meds Allergies Allergy/AdvReac Type Severity Reaction Status Date / Time No Known Allergies Allergy Verified 07/18/23 09:15 Active Medications: Current Medications Acetaminophen (Acetaminophen 325 Mg Tablet) 650 mg PO Q6H PRN PRN Reason: Pain, Mild (Pain Scale 1-3) Enoxaparin Sodium (Enoxaparin Sodium 40 Mg/0.4 Ml Syringe) 40 mg SUBCUT Q24H [facility] Glucose (Glucose Gel 15 Gm Gel..Gram.) 15 gm PO Q15M PRN; Protocol PRN Reason: per Hypoglycemia Standing Ord. Dextrose (D10) 250 mls @ 750 mls/hr IV Q15M PRN; Protocol PRN Reason: per Hypoglycemia Standing Ord. Insulin Human Lispro (Insulin Lispro 100 Unit/Ml 3 Ml Vial) 0 unit SUBCUT QIDACHS [facility]; Protocol Melatonin (Melatonin 3 Mg Tablet) 6 mg PO BEDTIME PRN PRN Reason: Insomnia Ondansetron HCl (Ondansetron Hcl 4 Mg/2 Ml Vial) 4 mg IVPUSH Q8H PRN PRN Reason: Nausea and Vomiting Sodium Chloride (0.9 % Sodium Chloride Flush 3 Ml Syringe) 3 ml IVFLUSH QSHIFT [facility] Home Medications ?Medication ?Instructions ?Recorded ?Confirmed ?Last Taken ?Type insulin aspart U-100 100 unit/mL 20 unit subcut TIDAC 07/18/23 07/18/23 Unknown History (3 mL) subcutaneous pen insulin degludec 200 unit/mL (3 48 unit subcut BEDTIME 07/18/23 07/18/23 Unknown History mL) subcutaneous pen (Tresiba FlexTouch U-200 insulin) lisinopril 40 mg tablet 40 mg PO DAILY 07/18/23 07/18/23 Unknown History Physical Exam 2 Vital Signs and Narrative: Vital Signs: Last Vital Signs Temp 98.2 F 07/18/23 19:17 Pulse 90 07/18/23 19:17 Resp 18 07/18/23 19:17 BP 126/64 07/18/23 19:17 Pulse Ox 99 07/18/23 19:17 O2 Del Method Room Air 07/18/23 19:17 BMI result Body Mass Index 28.2 General: AOx3, no acute distress Resp: CTA bilaterally CVS: S1, S2, RRR GI: +BS, no distention, central and left-sided tenderness Skin: Warm, dry Neuro: Cranial nerves II-XII grossly intact bilaterally. Motor grossly intact bilaterally Extremities: No edema Psych: Appropriate affect Results Labs 07/18/23 19:27 07/18/23 19:27 Labs: Laboratory Results - last 24 hr 07/18/23 07/18/23 07/18/23 17:19 18:23 19:14 MCV MCH MCHC RDW Plt Count MPV Immature Gran % (Auto) Neut % (Auto) Lymph % (Auto) Lane % (Auto) Eos % (Auto) Baso % (Auto) Lymph # (Auto) Lane # (Auto) Eos # (Auto) Baso # (Auto) Abs Immat Gran (auto) Absolute Neuts (auto) Absolute Nucleated RBC Nucleated RBC % (auto) VBG pH VBG pCO2 VBG pO2 VBG HCO3 VBG O2 Saturation VBG Base Excess Anion Gap Estim Creat Clear Calc Estimated GFR POC Glucose 275 H Random Glucose Calcium Magnesium Total Bilirubin AST ALT Alkaline Phosphatase Total Protein Albumin Lipase Beta-Hydroxybutyrate Urine Color Yellow Urine Appearance Hazy Urine pH 5.5 Ur Specific [place] >= 1.030 H Urine Protein 300 (3+) H Urine Glucose (UA) 500 H Urine Ketones Negative Urine Blood Trace Urine Nitrite Negative Ur Leukocyte Esterase Trace H Urine RBC 0-2 Urine WBC 6-10 Ur Squamous Epith Cells >20 Urine Bacteria 4+ Hyaline Casts >20 Influenza Type A (PCR) NEGATIVE Influenza Type B (PCR) NEGATIVE RSV RNA Qual (PCR) NEGATIVE SARS-CoV-2 RNA (RT-PCR) NEGATIVE 07/18/23 07/18/23 19:27 19:52 MCV 79.9 L MCH 25.8 L MCHC 32.3 RDW 12.5 Plt Count 241 MPV 11.6 Immature Gran % (Auto) 0.2 Neut % (Auto) 63.4 Lymph % (Auto) 27.9 Lane % (Auto) 6.2 Eos % (Auto) 2.1 Baso % (Auto) 0.2 Lymph # (Auto) 1.8 Lane # (Auto) 0.4 Eos # (Auto) 0.1 Baso # (Auto) 0.0 Abs Immat Gran (auto) 0.01 Absolute Neuts (auto) 4.0 Absolute Nucleated RBC 0.000 Nucleated RBC % (auto) 0.0 VBG pH 7.32 VBG pCO2 45 VBG pO2 54 VBG HCO3 24 VBG O2 Saturation 81.0 VBG Base Excess -2.1 Anion Gap 11 L Estim Creat Clear Calc 47.9 Estimated GFR 39 POC Glucose Random Glucose 351 H* Calcium 8.9 Magnesium 1.7 Total Bilirubin 0.5 AST 16 ALT 21 Alkaline Phosphatase 114 Total Protein 7.2 Albumin 3.4 L Lipase 31 Beta-Hydroxybutyrate 0.06 Urine Color Urine Appearance Urine pH Ur Specific [place] Urine Protein Urine Glucose (UA) Urine Ketones Urine Blood Urine Nitrite Ur Leukocyte Esterase Urine RBC Urine WBC Ur Squamous Epith Cells Urine Bacteria Hyaline Casts Influenza Type A (PCR) Influenza Type B (PCR) RSV RNA Qual (PCR) SARS-CoV-2 RNA (RT-PCR) Assessment and Plan (1) Diarrhea: Status: Acute (2) KIMBERLY (acute kidney injury): Status: Acute Plan Pt is a 53-year-old Yakut-speaking female with a PMH significant for?HTN, HLD, and insulin-dependent type 2 diabetes who presents to the ED with?intractable diarrhea since last night. Pt will be admitted to the hospital for treatment and further evaluation of KIMBERLY in the setting of intractable diarrhea likely secondary to gastroenteritis. Intractable diarrhea Patient with nausea, diarrhea, central cramping abdominal pain since yesterday Likely secondary to gastroenteritis Will check CT of abdomen/pelvis, GI panel Will treat with Imodium 2 mg x1 dose Clear liquid diet, advance as tolerated KIMBERLY Creatinine 1.41, up from 0.83 on 10/29/2022 Likely secondary to GI losses, reduced p.o. intake Patient received IVF in the ED Will place on maintenance fluids Hold lisinopril Follow BMP HTN Hold lisinopril due to KIMBERLY Monitor BP Insulin-dependent diabetes type 2 SSI, Lantus Diabetic diet Full Code Attending:? DVT Prophylaxis: Lovenox Pt will require a hospitalization of at least two nights for treatment of? with . Given continued intractable diarrhea and limited capability of tolerating p.o. intake, patient will require hospitalization for treatment of KIMBERLY with IVF and close monitoring of labs. Quality Stroke Does the patient have a stroke diagnosis?: No VTE Prior VTE?: No VTE Risk Level:: Medical - moderate - high VTE Device Contraindication: Treatment Not Indicated VTE Drug Contraindication: N/A - Med Ordered
[2023-07-18 20:39] LABS: Glucose, Whole Blood 217 mg/dL (60-115)
[2023-07-18] MEDS: Insulin Lispro 100 UNIT/ML 3 ML VIAL SUBCUT (20:43)
[2023-07-18 21:06] VITALS: BP 138/66; PULSE 96; RESP 18; TEMP 36.7; O2SAT 99
--- NOTE | 2023-07-18 21:08 | MHC.EDTECH ---
Hourly rounds and vitals completed,patient ambulated to the bathroom with a steady gait,call sadler in reach
--- NOTE | 2023-07-18 21:25 | PHA.MEDREC ---
Addendum entered by Emily Rutledge [facility] 07/18/23 21:39: Went to speak to patient to see if she was on jardiance or crestor even though claims are out of date. Confirmed with patient that she is no longer on either Original Note: Pharmacy Consult ? Medication Reconciliation Pharmacy has completed the medication reconciliation. Spoke to patient. [employer] used.
[2023-07-18] MEDS: Enoxaparin Sodium 40 MG/0.4 ML SYRINGE SUBCUT (21:55)
[2023-07-18] MEDS: Loperamide HCl 2 MG CAPSULE PO (21:55)
[2023-07-18] MEDS: Insulin Glargine,Hum.rec.anlog 100 UNIT/ML 10 ML VIAL 33 UNIT SUBCUT (21:55)
--- NOTE | 2023-07-18 22:09 | MHC.EDTECH ---
Belongings list completed and copy placed in chart.
[2023-07-18 23:12] VITALS: BP 119/61; PULSE 87; RESP 18; TEMP 36.7; O2SAT 98
--- NOTE | 2023-07-18 23:14 | MHC.EDTECH ---
Hourly rounds and vitals completed,patient is resting ,call sadler in reach
[2023-07-19 01:16] VITALS: BP 116/62; PULSE 89; RESP 18; TEMP 36.2; O2SAT 97
[2023-07-19] MEDS: 0.9 % Sodium Chloride 1,000 ML 100 ML IVCONT ×3 (02:04→21:34)
[2023-07-19 02:10] VITALS: BMI 28.7
[2023-07-19 03:34] VITALS: BP 122/58; PULSE 84; RESP 18; TEMP 36.2; O2SAT 96
[2023-07-19 05:58] LABS: MANUAL DIFF FLAG NO
[2023-07-19 06:31] LABS: Anion Gap 11 (12-20); Basophils Percent Auto 0.2 % (0-2); Blood Urea Nitrogen 23 mg/dL (9-16); Carbon Dioxide 20 mmol/L (22-29); Chloride 110 mmol/L (96-108); Eosinophils Absolute Auto 0.1 X10*3/uL (0.0-0.4); Eosinophils Percent Auto 2.2 % (0-4); Estimated Glomerular Filt Rate > 60; Glucose Random 159 mg/dL (60-115); Hematocrit 35.4 % (37.0-47.0); Hemoglobin 11.6 g/dl (12.0-16.0); Imm Gran Abs Auto 0.01 X10*3/uL (0.00-0.03); Imm Gran Pct Auto 0.2 % (0.0-0.4); Lymphocytes Absolute Auto 2.1 X10*3/uL (1.2-4.9); Lymphocytes Percent Auto 42.2 % (20-40); Mean Corpuscular HGB Conc 32.8 g/dl (31.0-35.0); Mean Corpuscular Hemoglobin 26.2 pg (27.0-33.0); Mean Corpuscular Volume 80.1 fL (80.0-98.0); Mean Platelet Volume 11.9 fL (9.4-12.3); Monocytes Absolute Auto 0.3 X10*3/uL (0.1-1.2); Monocytes Percent Auto 6.9 % (2-11); Neutrophils Absolute Auto 2.4 x10*3/uL (2.0-8.3); Neutrophils Percent Auto 48.3 % (45-73); Platelet Count 192 X10*3/uL (160-400); Potassium 3.5 mmol/L (3.3-5.1); Red Blood Count 4.42 X10*6/uL (4.20-5.50); Red Cell Distribution Width 12.5 % (11.0-16.0); Sodium 137 mmol/L (135-145)
[2023-07-19 07:43] VITALS: BP 159/71; PULSE 91; RESP 17; TEMP 36.1; O2SAT 99
[2023-07-19 07:50] LABS: Glucose, Whole Blood 154 mg/dL (60-115)
[2023-07-19] MEDS: Insulin Lispro 100 UNIT/ML 3 ML VIAL SUBCUT ×4 (07:57→21:33)
[2023-07-19 11:37] LABS: Glucose, Whole Blood 203 mg/dL (60-115)
--- NOTE | 2023-07-19 14:27 | HO.PM.IMPN ---
Subjective Subjective Date of Service: 07/19/23 Interval History: kimberly , diarrhae Review of Systems abd and diarrhae some what improving Physical Exam Vital Signs: Vital Signs: Last Vital Signs Temp 97.0 F 07/19/23 07:43 Pulse 91 07/19/23 07:43 Resp 17 07/19/23 07:43 BP 159/71 H 07/19/23 07:43 Pulse Ox 99 07/19/23 07:43 O2 Del Method Room Air 07/19/23 07:43 BMI result Body Mass Index 28.7 Appearance: Alert.? Oriented X3.?. cvs: rrr, [id number] . res: clear to auscultation ,no rhonchii or wheezing abd: no rebound or guarding ,mostly abd pain mid abd/upper suprapubic improving, bs present. ext pulses present , no cyanosis . neuro: axo3 , nonfocal. Objective Data Active Medications Acetaminophen (Acetaminophen 325 Mg Tablet) 650 mg PO Q6H PRN PRN Reason: Pain, Mild (Pain Scale 1-3) Enoxaparin Sodium (Enoxaparin Sodium 40 Mg/0.4 Ml Syringe) 40 mg SUBCUT Q24H [facility] Last Admin: 07/18/23 21:55 Dose: 40 mg Documented By: NICKY Glucose (Glucose Gel 15 Gm Gel..Gram.) 15 gm PO Q15M PRN; Protocol PRN Reason: per Hypoglycemia Standing Ord. Dextrose (D10) 250 mls @ 750 mls/hr IV Q15M PRN; Protocol PRN Reason: per Hypoglycemia Standing Ord. Sodium Chloride (Ns) 1,000 mls @ 100 mls/hr IVCONT .Q10H [facility] Last Admin: 07/19/23 12:01 Dose: 100 mls/hr Documented By: OVIDIO Insulin Glargine (Insulin Glargine,Hum.Rec.Anlog 100 Unit/Ml 10 Ml Vial) 33 unit SUBCUT BEDTIME [facility] Last Admin: 07/18/23 21:55 Dose: 33 unit Documented By: NICKY Insulin Human Lispro (Insulin Lispro 100 Unit/Ml 3 Ml Vial) 0 unit SUBCUT QIDACHS [facility]; Protocol Last Admin: 07/19/23 11:59 Dose: 4 unit Documented By: OVIDIO Melatonin (Melatonin 3 Mg Tablet) 6 mg PO BEDTIME PRN PRN Reason: Insomnia Ondansetron HCl (Ondansetron Hcl 4 Mg/2 Ml Vial) 4 mg IVPUSH Q8H PRN PRN Reason: Nausea and Vomiting Sodium Chloride (0.9 % Sodium Chloride Flush 3 Ml Syringe) 3 ml IVFLUSH QSHIFT OZZIE Last Admin: 07/19/23 07:50 Dose: Not Given Documented By: OVIDIO Non-Admin Reason: IV Running Labs 07/19/23 05:23 07/19/23 05:23 Labs: Laboratory Results - last 24 hr 07/18/23 07/18/23 07/18/23 17:19 18:23 19:14 MCV MCH MCHC RDW Plt Count MPV Immature Gran % (Auto) Neut % (Auto) Lymph % (Auto) [place] % (Auto) Eos % (Auto) Baso % (Auto) Lymph # (Auto) [place] # (Auto) Eos # (Auto) Baso # (Auto) Abs Immat Gran (auto) Absolute Neuts (auto) Absolute Nucleated RBC Nucleated RBC % (auto) VBG pH VBG pCO2 VBG pO2 VBG HCO3 VBG O2 Saturation VBG Base Excess Anion Gap Estim Creat Clear Calc Estimated GFR POC Glucose 275 H Random Glucose Calcium Magnesium Total Bilirubin AST ALT Alkaline Phosphatase Total Protein Albumin Lipase Beta-Hydroxybutyrate Urine Color Yellow Urine Appearance Hazy Urine pH 5.5 Ur Specific [place] >= 1.030 H Urine Protein 300 (3+) H Urine Glucose (UA) 500 H Urine Ketones Negative Urine Blood Trace Urine Nitrite Negative Ur Leukocyte Esterase Trace H Urine RBC 0-2 Urine WBC 6-10 Ur Squamous Epith Cells >20 Urine Bacteria 4+ Hyaline Casts >20 Influenza Type A (PCR) NEGATIVE Influenza Type B (PCR) NEGATIVE RSV RNA Qual (PCR) NEGATIVE SARS-CoV-2 RNA (RT-PCR) NEGATIVE 07/18/23 07/18/23 07/18/23 19:27 19:52 20:35 MCV 79.9 L MCH 25.8 L MCHC 32.3 RDW 12.5 Plt Count 241 MPV 11.6 Immature Gran % (Auto) 0.2 Neut % (Auto) 63.4 Lymph % (Auto) 27.9 [place] % (Auto) 6.2 Eos % (Auto) 2.1 Baso % (Auto) 0.2 Lymph # (Auto) 1.8 [place] # (Auto) 0.4 Eos # (Auto) 0.1 Baso # (Auto) 0.0 Abs Immat Gran (auto) 0.01 Absolute Neuts (auto) 4.0 Absolute Nucleated RBC 0.000 Nucleated RBC % (auto) 0.0 VBG pH 7.32 VBG pCO2 45 VBG pO2 54 VBG HCO3 24 VBG O2 Saturation 81.0 VBG Base Excess -2.1 Anion Gap 11 L Estim Creat Clear Calc 47.9 Estimated GFR 39 POC Glucose 217 H Random Glucose 351 H* Calcium 8.9 Magnesium 1.7 Total Bilirubin 0.5 AST 16 ALT 21 Alkaline Phosphatase 114 Total Protein 7.2 Albumin 3.4 L Lipase 31 Beta-Hydroxybutyrate 0.06 Urine Color Urine Appearance Urine pH Ur Specific [place] Urine Protein Urine Glucose (UA) Urine Ketones Urine Blood Urine Nitrite Ur Leukocyte Esterase Urine RBC Urine WBC Ur Squamous Epith Cells Urine Bacteria Hyaline Casts Influenza Type A (PCR) Influenza Type B (PCR) RSV RNA Qual (PCR) SARS-CoV-2 RNA (RT-PCR) 07/19/23 07/19/23 07/19/23 05:23 07:45 11:30 MCV 80.1 MCH 26.2 L MCHC 32.8 RDW 12.5 Plt Count 192 MPV 11.9 Immature Gran % (Auto) 0.2 Neut % (Auto) 48.3 Lymph % (Auto) 42.2 H [place] % (Auto) 6.9 Eos % (Auto) 2.2 Baso % (Auto) 0.2 Lymph # (Auto) 2.1 [place] # (Auto) 0.3 Eos # (Auto) 0.1 Baso # (Auto) 0.0 Abs Immat Gran (auto) 0.01 Absolute Neuts (auto) 2.4 Absolute Nucleated RBC 0.000 Nucleated RBC % (auto) 0.0 VBG pH VBG pCO2 VBG pO2 VBG HCO3 VBG O2 Saturation VBG Base Excess Anion Gap 11 L Estim Creat Clear Calc 84.0 Estimated GFR > 60 POC Glucose 154 H 203 H Random Glucose 159 H Calcium 8.0 L D Magnesium Total Bilirubin AST ALT Alkaline Phosphatase Total Protein Albumin Lipase Beta-Hydroxybutyrate Urine Color Urine Appearance Urine pH Ur Specific [place] Urine Protein Urine Glucose (UA) Urine Ketones Urine Blood Urine Nitrite Ur Leukocyte Esterase Urine RBC Urine WBC Ur Squamous Epith Cells Urine Bacteria Hyaline Casts Influenza Type A (PCR) Influenza Type B (PCR) RSV RNA Qual (PCR) SARS-CoV-2 RNA (RT-PCR) Microbiology Microbiology Results: Microbiology 07/18/23 18:52 Urine Culture - Preliminary Urine clean catch - Urine lim top Gram negative irma Assessment and Plan (1) KIMBERLY (acute kidney injury): Status: Acute (2) Diarrhea: Status: Acute (3) UTI (urinary tract infection): Status: Acute Plan 53-year-old Pakistani-speaking female with a PMH significant for?HTN, HLD, and insulin-dependent type 2 diabetes who presents to the ED with?intractable diarrhea since last night. Pt will be admitted to the hospital for treatment and further evaluation of KIMBERLY in the setting of intractable diarrhea likely secondary to gastroenteritis. Intractable diarrhea Patient with nausea, diarrhea, central cramping abdominal pain since yesterday Likely secondary to gastroenteritis CT of abdomen/pelvis-? cystsitis/ enteritis GI panel,cdiff -need to be sent. Clear liquid diet, advance as tolerated Gi eval possible uti: has pyuria/bacteruria urine culture -gram negative irma ct shows -?? cystsitis pvr added ceftraixone (07/18) KIMBERLY Creatinine 1.41, up from 0.83 on 10/29/2022 Likely secondary to GI losses, reduced p.o. intake imrpoving cr 0.8 Hold lisinopril Follow BMP HTN: bp improving Hold lisinopril due to KIMBERLY Monitor BP,if needed will add back lisinopril if renal function stay fine by tomorrow. Insulin-dependent diabetes type 2 SSI, Lantus Diabetic diet Full Code DVT Prophylaxis: Lovenox ongoing hospitalization need for 48-72 hours : Given continued intractable diarrhea , UTI and limited capability of tolerating p.o. intake, patient will require hospitalization for treatment of KIMBERLY with IVF and close monitoring of labs. Quality Stroke Does the patient have a stroke diagnosis?: No VTE Prior VTE?: No VTE Risk Level:: Medical - moderate - high VTE Device Contraindication: Treatment Not Indicated VTE Drug Contraindication: N/A - Med Ordered
[2023-07-19] MEDS: cefTRIAXone sodium 1 GM in 0.9 % Sodium Chloride 50 ML IV (14:58)
[2023-07-19 15:26] VITALS: BP 141/78; PULSE 85; RESP 16; TEMP 36.3; O2SAT 98
--- NOTE | 2023-07-19 16:28 | MHC.CM.PN ---
PT REPORTS SHE LIVES WITH HER SPOUSE AND IS INDEPENDENT WITH CARE SHE HAS NO DME AND NO SERVICES AND WORKS SHE DECLINES TO COMPLETE A HCP SHE SAYS HER PCP IS AT [facility] IN [place] DCP: HOME NO SERVICES VIA PRIVATE TRANSPORT PT IS [place] SPEAKING ONLY, [facility] [facility] PRESENT
[2023-07-19 16:29] LABS: Glucose, Whole Blood 194 mg/dL (60-115)
--- NOTE | 2023-07-19 17:12 | PC.NURSE ---
Pt has had no stool to collect and send for specimen today
[2023-07-19 19:18] VITALS: BP 137/72; PULSE 81; RESP 16; TEMP 36.6
[2023-07-19 20:55] LABS: Glucose, Whole Blood 223 mg/dL (60-115)
[2023-07-19] MEDS: Enoxaparin Sodium 40 MG/0.4 ML SYRINGE SUBCUT (21:33)
[2023-07-19] MEDS: Insulin Glargine,Hum.rec.anlog 100 UNIT/ML 10 ML VIAL 33 UNIT SUBCUT (21:33)
--- NOTE | 2023-07-19 22:31 | CONS_ITS ---
DATE OF SERVICE: 07/19/2023 REFERRING PHYSICIAN: Dr. Kay REASON FOR CONSULTATION: Abdominal pain and diarrhea. HISTORY OF PRESENT ILLNESS: The patient is a pleasant 53-year-old woman who was admitted to the hospital after presenting to the emergency room. She states she was well until the day of admission when she developed diarrhea after eating a breakfast sandwich. There was associated generalized abdominal pain with some nausea. She currently denies vomiting but other observers have documented that she did have vomiting. She had nonbloody watery diarrhea and presented to the emergency room. She has no report of fevers or chills and no ill contacts. Since admission, she has had no vomiting and is tolerating clear liquid diet. Diarrhea has not been recorded as well per nursing. Evaluation included imaging of the abdomen and pelvis with CT, which is reviewed. This shows bladder wall thickening and some mild thickening of a single loop of small bowel in the pelvis, possibly due to enteritis. She also had narrowing in the sigmoid colon without obstruction. She has never undergone colonoscopy. PAST MEDICAL HISTORY: 1. Diabetes mellitus. 2. Hypertension. 3. Hyperlipidemia. 4. Coronary artery disease. She believes she had a stent placed 2 years ago in [place]. CURRENT MEDICATIONS: Her current medication list is reviewed in the chart. ALLERGIES: THERE ARE NONE REPORTED. FAMILY HISTORY: This is reviewed with the patient and is negative for colorectal cancer. SOCIAL HISTORY: She denies tobacco, alcohol, and substance abuse. REVIEW OF SYSTEMS: SKIN: No pruritus. HEENT: Negative. CARDIOPULMONARY: She denies shortness of breath or chest pain. GASTROINTESTINAL: As above. GENITOURINARY: Negative. NEUROPSYCHIATRIC: Negative. PHYSICAL EXAMINATION: GENERAL: Shows a pleasant female, lying comfortably in bed. VITAL SIGNS: Stable. SKIN: Anicteric. HEENT: Shows no scleral icterus. NECK: Without lymphadenopathy or thyromegaly. LUNGS: Clear. HEART: Shows a regular rate and rhythm. S1, S2. No murmur. ABDOMEN: Soft without focal masses or tenderness. Bowel sounds are present. No organomegaly is noted. EXTREMITIES: Without edema. LABORATORY DATA AND IMAGING STUDIES: Reviewed. IMPRESSION: Abdominal pain with diarrhea. This appears most consistent with a viral gastroenteritis. CT scanning shows some nonspecific findings, which would go along with this diagnosis, and she has never undergone colonoscopy. I recommend this be done as an outpatient when she recovers from her acute episode. I agree with treating her supportively. I will arrange outpatient colonoscopy. Thanks for asking me to see her. I will follow her in the hospital with you. MD MEGHANN Mc/TAMICA / [id number] MTDD
[2023-07-20] MEDS: cefTRIAXone sodium 1 GM in 0.9 % Sodium Chloride 50 ML IV (03:15)
[2023-07-20 03:16] VITALS: BP 197/93; PULSE 89; RESP 16; TEMP 36.5; O2SAT 98
--- NOTE | 2023-07-20 03:23 | MHC.PIE ---
p; b/p 183/80, repeat b/p 197/93. note; pt reports hx of htn taking lisinopril - last taken 4 days ago d/t n/v at home. pt on NS @100ml i; dr escalera notified e; will cont to monitor
[2023-07-20 07:19] VITALS: BP 159/79; PULSE 91; RESP 16; TEMP 36.5; O2SAT 96
[2023-07-20 07:22] LABS: Glucose, Whole Blood 146 mg/dL (60-115)
[2023-07-20] MEDS: 0.9 % Sodium Chloride 1,000 ML 100 ML IVCONT (07:57)
[2023-07-20 09:11] LABS: Anion Gap 10 (12-20); Blood Urea Nitrogen 7 mg/dL (9-16); Calcium 8.6 mg/dL (8.4-10.2); Carbon Dioxide 27 mmol/L (22-29); Chloride 109 mmol/L (96-108); Creatinine Clr Calc Pharmacy 98.6; Estimated Glomerular Filt Rate > 60; Glucose Random 133 mg/dL (60-115); Potassium 3.5 mmol/L (3.3-5.1); Sodium 142 mmol/L (135-145)
[2023-07-20] MEDS: lisinopriL 40 MG TABLET PO (09:28)
[2023-07-20 11:00] LABS: Glucose, Whole Blood 232 mg/dL (60-115)
--- NOTE | 2023-07-20 11:48 | PM.DS ---
DS: Providers Provider Date of Service: 07/20/23 Date of admission: 07/18/23 20:18 Date of discharge: 07/20/23 Primary care physician: Unknown Physician Consults: 07/19/23 08:04 Consult to Gastroenterology Routine Consulting Provider: [facility] Reason for consultation: intractable nausea ,abd pain Has provider been notified: No DS: Diagnosis Discharge Diagnosis (1) KIMBERLY (acute kidney injury): Status: Acute (2) Diarrhea: Status: Acute (3) Gastroenteritis: Status: Acute (4) Asymptomatic bacteriuria: Status: Acute DS: Summary Hospital Course Hospital Course: From the history and physical by the admitting hospitalist, LUCAS Mariscal, 07/18/23: Pt is a 53-year-old Mongolian-speaking female with a PMH significant for?HTN, HLD, and insulin-dependent type 2 diabetes who presents to the ED with?intractable diarrhea since last night. Patient reports she has been experiencing central abdominal cramping pain since noon. Later in the evening patient began experiencing nonbloody diarrhea. Has had between 15 and 20 episodes since last night. Has also had nausea without vomiting, subjective chills, and neck and joint pain. Denies any sick contacts or recent travel, but notes she ate a potentially suspicious egg salad, tuna, and perez sandwich yesterday for lunch. Patient reports she has been able to tolerate some p.o. liquid since symptoms began. Denies chest pain/pressure, palpitaitons. No SOB or difficulty breathing. Patient denies polyuria or dysuria. In the ED pt with HR up to 95, vitals otherwise WNL. Labs were significant for sodium 134, BUN 30 , creatinine 1.41(up from 0.83 on 10/29/2022), and random glucose 351. UTI positive for protein, glucose, trace amount of leukocyte esterase, wbc's 6-10, squamous epithelial cells >20, and 4+ bacteria, concerning for contamination rather than acute UTI. Tested negative for RSV, COVID, and flu. CT?of abd and pelvis pending. Pt was treated with ondansetron and IVF. Pt will be admitted to the hospital for treatment and further evaluation of KIMBERLY in the setting of intractable diarrhea likely secondary to gastroenteritis. She was admitted to the medical-surgical floor and treated with IV fluids. Diarrhea resolved to the point where no sample could be sent for Cdiff or viral testing. Diet was advanced and tolerated well. KIMBERLY resolved with IV fluid hydration and holding lisinopril. CT finding of cystitis did not corroborrate with symptoms; patient was felt to have asymptomatic bacteruria, so antibiotics were stopped [she had gotten ceftriaxone]. GI consulted and agreed with diagnosis of likely gastroenteritis. She has never undergone colononscopy so this will be arranged by [facility] as an outpatient. She was discharged home with prn Zofran and lisinopril was resumed. Time Attestation Discharge Coordination Time (in mins): 35 Quality: Safe Use of Opioids Does Pt have an Active Cancer Diagnosis on the Problem List?: No Quality: Stroke Does the patient have a stroke diagnosis?: No Physical Exam Vital Signs: Vital Signs: Last Vital Signs Temp 97.7 F 07/20/23 07:19 Pulse 91 07/20/23 07:19 Resp 16 07/20/23 07:19 BP 159/79 H 07/20/23 07:19 Pulse Ox 96 07/20/23 07:19 O2 Del Method Room Air 07/20/23 07:19 BMI result Body Mass Index 28.7 Gen: in no acute distress HEENT: sclera anicteric, moist mucus membranes Neck: supple Lungs: clear to auscultation bilaterally Heart: regular rate and rhythm, no murmurs Abd: soft, non-tender, non-distended Ext: no edema Skin: warm/well-perfused Neuro: alert and oriented x3, no focal findings Psych: appropriate affect DS: Data Data Completed and Pending Completed studies during hospitalization [Text1]: Laboratory Results WBC 5.0 X10*3/uL (4.8-10.8) 07/19/23 05:23 RBC 4.42 X10*6/uL (4.20-5.50) 07/19/23 05:23 Hgb 11.6 g/dl (12.0-16.0) L 07/19/23 05:23 Hct 35.4 % (37.0-47.0) L 07/19/23 05:23 MCV 80.1 fL (80.0-98.0) 07/19/23 05:23 MCH 26.2 pg (27.0-33.0) L 07/19/23 05:23 MCHC 32.8 g/dl (31.0-35.0) 07/19/23 05:23 RDW 12.5 % (11.0-16.0) 07/19/23 05:23 Plt Count 192 X10*3/uL (160-400) 07/19/23 05:23 MPV 11.9 fL (9.4-12.3) 07/19/23 05:23 Immature Gran % (Auto) 0.2 % (0.0-0.4) 07/19/23 05:23 Neut % (Auto) 48.3 % (45-73) 07/19/23 05:23 Lymph % (Auto) 42.2 % (20-40) H 07/19/23 05:23 [place] % (Auto) 6.9 % (2-11) 07/19/23 05:23 Eos % (Auto) 2.2 % (0-4) 07/19/23 05:23 Baso % (Auto) 0.2 % (0-2) 07/19/23 05:23 Lymph # (Auto) 2.1 X10*3/uL (1.2-4.9) 07/19/23 05:23 [place] # (Auto) 0.3 X10*3/uL (0.1-1.2) 07/19/23 05:23 Eos # (Auto) 0.1 X10*3/uL (0.0-0.4) 07/19/23 05:23 Baso # (Auto) 0.0 X10*3/uL (0.0-0.2) 07/19/23 05:23 Abs Immat Gran (auto) 0.01 X10*3/uL (0.00-0.03) 07/19/23 05:23 Absolute Neuts (auto) 2.4 x10*3/uL (2.0-8.3) 07/19/23 05:23 Absolute Nucleated RBC 0.000 X10*3/uL (0.0-0.012) 07/19/23 05:23 Nucleated RBC % (auto) 0.0 /100WBC (0.0-0.2) 07/19/23 05:23 VBG pH 7.32 (7.32-7.43) 07/18/23 19:52 VBG pCO2 45 mmHg 07/18/23 19:52 VBG pO2 54 mmHg 07/18/23 19:52 VBG HCO3 24 mmol/L (22-26) 07/18/23 19:52 VBG O2 Saturation 81.0 % 07/18/23 19:52 VBG Base Excess -2.1 mmol/L 07/18/23 19:52 Sodium 142 mmol/L (135-145) 07/20/23 07:45 Potassium 3.5 mmol/L (3.3-5.1) 07/20/23 07:45 Chloride 109 mmol/L (96-108) H 07/20/23 07:45 Carbon Dioxide 27 mmol/L (22-29) 07/20/23 07:45 Anion Gap 10 (12-20) L 07/20/23 07:45 BUN 7 mg/dL (9-16) L 07/20/23 07:45 Creatinine 0.69 mg/dL (0.5-1.4) 07/20/23 07:45 Estim Creat Clear Calc 98.6 07/20/23 07:45 Estimated GFR > 60 07/20/23 07:45 POC Glucose 232 mg/dL (60-115) H 07/20/23 10:54 Random Glucose 133 mg/dL (60-115) H 07/20/23 07:45 Calcium 8.6 mg/dL (8.4-10.2) D 07/20/23 07:45 Magnesium 1.7 mg/dL (1.6-2.6) 07/18/23 19:27 Total Bilirubin 0.5 mg/dL (0.0-1.0) 07/18/23 19:27 AST 16 U/L (5-31) 07/18/23 19:27 ALT 21 U/L (0-31) 07/18/23 19:27 Alkaline Phosphatase 114 U/L (39-117) 07/18/23 19:27 Total Protein 7.2 g/dL (6.5-8.0) 07/18/23 19:27 Albumin 3.4 g/dL (3.5-5.0) L 07/18/23 19:27 Lipase 31 U/L (8-78) 07/18/23 19:27 Beta-Hydroxybutyrate 0.06 mmol/L (0.02-0.27) 07/18/23 19:27 Urine Color Yellow 07/18/23 18: Urine Appearance Hazy 07/18/23 18:23 Urine pH 5.5 (5.0-9.0) 07/18/23 18:23 Ur Specific [place] >= 1.030 (1.005-1.025) H 07/18/23 18:23 Urine Protein 300 (3+) mg/dL (Neg-Trace) H 07/18/23 18: Urine Glucose (UA) 500 mg/dL (Negative) H 07/18/23 18:23 Urine Ketones Negative mg/dL (Negative) 07/18/23 18: Urine Blood Trace (Negative) 07/18/23 18: Urine Nitrite Negative (Negative) 07/18/23 18:23 Ur Leukocyte Esterase Trace (Negative) H 07/18/23 18:23 Urine RBC 0-2 /HPF (0-2) 07/18/23 18:23 Urine WBC 6-10 /HPF (0-5) 07/18/23 18:23 Ur Squamous Epith Cells >20 /HPF (0-2) 07/18/23 18:23 Urine Bacteria 4+ (None Seen) 07/18/23 18:23 Hyaline Casts >20 /LPF (0-2) 07/18/23 18:23 Influenza Type A (PCR) NEGATIVE (Negative) 07/18/23 17:19 Influenza Type B (PCR) NEGATIVE (Negative) 07/18/23 17:19 RSV RNA Qual (PCR) NEGATIVE (Negative) 07/18/23 17:19 SARS-CoV-2 RNA (RT-PCR) NEGATIVE (Negative) 07/18/23 17:19 Impressions Abdomen/Pelvis CT 07/18/23 20:15 IMPRESSION: 1. There is marked symmetric thickening of the bladder wall which is completely new when compared to the prior study. Correlate with urinalysis with the possibility of cystitis. 2. There is some mild thickening of a single loop of small bowel in the pelvis which appears minimally tethered. This could be due to enteritis in the correct clinical setting. 3. There is an area of narrowing in the sigmoid colon without obstruction which could be due to underdistention. If there are guaiac positive stools, colonoscopy or CT colonoscopy may be of value. 4. Mildly prominent lymph nodes in the cecal mesentery. 5. Mildly enlarged fatty liver. 6. Other incidental findings as described above. Fleischner guidelines were followed. Discharge Plan Discharge Anticipated Discharge Date/Time: 07/20/23 11:43 Patient Disposition: Home, Self-Care Discharge Diagnosis: Gastroenteritis Acute kidney injury Referrals: [facility] [Provider Group] - 1 Week Javon Schmid MD [Physician] - 1 Month Physician,Jas Wall [Primary Care Provider] - 1 Week Discharge Medications: New ondansetron HCl 4 mg tablet 4 mg PO Q8H PRN (Reason: nausea and vomiting) Qty: 10 0RF Continued lisinopril 40 mg tablet 40 mg PO DAILY insulin aspart U-100 100 unit/mL (3 mL) insulin pen 20 unit subcut TIDAC insulin degludec [Tresiba FlexTouch U-200] 200 unit/mL (3 mL) insulin pen 48 unit subcut BEDTIME Discharge Orders: Discharge Order (Routine); Ordered 07/20/23 Ordered By: Julio Simons Diet: Diabetic diet Activity on Discharge: As tolerated Stand Alone Forms: Patient Portal Discharge page, Work/School Release Print Language: Mongolian Care Plan Goals: GI health Kidney health Health Concerns: Gastroenteritis Acute kidney injury Plan of Treatment: Take ondansetron as needed for nausea/vomiting Diarrhea resolved Acute kidney injury resolved Follow up with enrollment management manager Dr Schmid for colonoscopy in 1 month Please follow up with your primary care doctor within 1 week. Return to the hospital if you experience recurrent or worsening symptoms. Assessment: See Discharge Summary.
[2023-07-20] MEDS: Insulin Lispro 100 UNIT/ML 3 ML VIAL SUBCUT (11:59)
== END 2023-07-20 15:03 | disposition home or self-care (01) | DRG 249 ==
LOC: HO.ED 19:15 → HO.EDOVER 20:50 → HO.S3 07-19 00:20
PROVIDERS: Internal Medicine; Nurse Practitioner Family; Student in an Organized Health Care Education/Training Program; Admitting Provider Student in an Organized Health Care Education/Training Program; Emergency Provider Internal Medicine; Visit Provider Family Medicine
DX: A08.4 Viral intestinal infection, unspecified (principal); N17.9 Acute kidney failure, unspecified; I25.10 Atherosclerotic heart disease of native coronary artery without angina pectoris; E11.9 Type 2 diabetes mellitus without complications; E78.5 Hyperlipidemia, unspecified; I10 Essential (primary) hypertension; Z20.822 Contact with and (suspected) exposure to COVID-19; Z79.4 Long term (current) use of insulin; Z79.899 Other long term (current) drug therapy
CPT/HCPCS: 0241U; 36415; 74177; 80048; 80053; 81001; 82010; 82803; 82947; 83690; 83735; 85025; 87086; 87088; 87186; 99221; 99285; J0696; J1650; Q9967

== ENCOUNTER → 2023-07-18 20:18 | Outpatient (BNV) | payer MEDICAID, SELFPAY | PROVIDERS: Admitting Provider Student in an Organized Health Care Education/Training Program; Emergency Provider Internal Medicine; Visit Provider Student in an Organized Health Care Education/Training Program | DX: N17.9 Acute kidney failure, unspecified (principal); R19.7 Diarrhea, unspecified; N39.0 Urinary tract infection, site not specified | CPT/HCPCS: 99223; 99232; 99239 ==